=== PATIENT | female | born 1985 | race African-American/Black ===

== ENCOUNTER 2016-07-24 19:50 | Emergency (ER) | payer OTHER ==
[2016-07-24 19:57] VITALS: BP 128/80; PULSE 109; TEMP 97.7; BMI 33.2
--- NOTE | 2016-07-24 19:58 | PDOC ---
Rapid Medical Evaluation Chief Complaint: Eye Problem Time Seen by Provider: 07/24/16 19:57 Medical Evaluation: Allergies Allergy/AdvReac Type Severity Reaction Status Date / Time No Known Allergies Allergy Verified 07/24/16 19:55 Vital Signs Temp Pulse Resp BP Pulse Ox 97.7 F 109 H 18 128/80 97 07/24/16 19:55 07/24/16 19:55 07/24/16 19:55 07/24/16 19:55 07/24/16 19:55 07/24/16 19:57 31 yo F c/o left eye redness and irritation since this morning. No blurriness, visual disturbance.
[2016-07-24] MEDS ORDERED: TOBRAMYCIN 0.3% OPHTH SOLN 5 ML BOTTLE OU ONE (21:18)
[2016-07-24] MEDS ORDERED: TOBRAMYCIN 0.3% OPHTH SOLN 5 ML BOTTLE ONE (21:20)
--- NOTE | 2016-07-24 21:20 | PDOC ---
History of Present Illness - General Chief Complaint: Eye Problem Stated Complaint: POSSIBLE PINK EYE Time Seen by Provider: 07/24/16 19:57 History Source: Patient Exam Limitations: No Limitations - History of Present Illness Initial Comments: 07/24/16 21:32 CHIEF COMPLAINT: Eye redness HISTORY OF PRESENT ILLNESS: This is an otherwise healthy 31 year old female, currently 39 weeks , who presents complaining of two days of bilateral eye itching, redness, and discharge. She states that this morning, both eyes were crusted shut. Both daughters are currently being treated for conjunctivitis. She denies fevers/chills or any other symptoms. REVIEW OF SYSTEMS: GENERAL/CONSTITUTIONAL: No fever or chills. No weakness. No weight change. HEAD, EYES, EARS, NOSE AND THROAT: See HPI. CARDIOVASCULAR: No chest pain or palpitations. RESPIRATORY: No cough, wheezing, or shortness of breath. GASTROINTESTINAL: No nausea, vomiting, diarrhea or constipation. SKIN: No rash or easy bruising. NEUROLOGIC: No headache, vertigo, loss of consciousness, or loss of sensation. ALLERGIC/IMMUNOLOGIC: No hives or skin allergy. No latex allergy. PHYSICAL EXAM: GENERAL: The patient is awake, alert, and fully oriented, in no acute distress. ENT: Conjunctivae injected with yellow discharge bilaterally. PERRL, EOMI. NEUROLOGICAL: Normal speech, normal gait. CN II-XII grossly intact. PSYCH: Normal mood, normal affect. SKIN: Warm, dry, normal turgor, no rashes or lesions noted. Past History - Past Medical History Allergies/Adverse Reactions: Allergies Allergy/AdvReac Type Severity Reaction Status Date / Time No Known Allergies Allergy Verified 07/24/16 19:55 Home Medications: Ambulatory Orders Vit Calc,Iron,Folic [ Vitamins] 1 each PO DAILY 03/01/16 Asthma: No Cancer: No Cardiac Disorders: No Diabetes: No HTN: No Seizures: No Thyroid Disease: No Other medical history: denies - Reproductive History Expected Date of Delivery: 07/26/16 (#): 4 Para: 3 (full term vaginal) Cervical CA: No Dysfunctional Uterine Bleeding: No Ectopic : No Endometrial CA: No Endometriosis: No Ovarian CA: No PID: No Polycystic Ovaries: No Therapeutic (s) & number: No Spontaneous : 0 - Immunization History Immunization Up to Date: Yes - Psycho/Social/Smoking Cessation Hx Anxiety: No Suicidal Ideation: No Smoking Status: No Smoking History: Never smoked Have you smoked in the past 12 months: No Number of Cigarettes Smoked Daily: 6 If you are a former smoker, when did you quit?: 1 year 'Breaking Loose' booklet given: 04/10/16 Hx Alcohol Use: No Drug/Substance Use Hx: No Substance Use Type: None Hx Substance Use Treatment: No *Physical Exam - Vital Signs Last Vital Signs Temp Pulse Resp BP Pulse Ox 97.7 F 109 H 18 128/80 97 07/24/16 19:55 07/24/16 19:55 07/24/16 19:55 07/24/16 19:55 07/24/16 19:55 Medical Decision Making - Medical Decision Making 07/24/16 21:41 A/P: 31 year old female with conjunctivitis. -Tobramycin ophthalmic solution -Supportive care -Return precautions reviewed *DC/Admit/Observation/Transfer Diagnosis at time of Disposition: Conjunctivitis Qualifiers: Conjunctivitis type: acute Acute conjunctivitis type: bacterial Laterality: bilateral Qualified Code(s): H10.33 - Unspecified acute conjunctivitis, bilateral - Discharge Dispostion Disposition: HOME Condition at time of disposition: Stable Admit: No - Patient Instructions Printed Discharge Instructions: DI for Conjunctivitis Additional Instructions: -Continue Tobramycin 2 drops each eye every 4 hrs -Apply warm compresses to both eyes several times a day -Wash sheets and pillowcases in hot water and discard all eye makeup -Return here for any new or concerning symptoms
== END 2016-07-24 21:23 | disposition home or self-care (01) ==
LOC: JERFT 19:50
DX: O99.89 Other specified diseases and conditions complicating pregnancy, childbirth and the puerperium (principal); H10.33 Unspecified acute conjunctivitis, bilateral; Z3A.33 33 weeks gestation of pregnancy
CPT/HCPCS: 99281-25

== ENCOUNTER 2016-10-08 00:41 | Emergency (ER) | payer OTHER ==
[2016-10-08 01:35] VITALS: BP 125/68; PULSE 75; TEMP 98.3; BMI 27.3
[2016-10-08] MEDS ORDERED: ACETAMINOPHEN 325 MG TABLET (FP) PO ONE (01:39)
[2016-10-08] MEDS ORDERED: CEPHALEXIN MONOHYDRATE 500 MG CAPSULE (UD) PO ONE (01:39)
[2016-10-08] MEDS ORDERED: TETANUS AND DIPHTHERIA TOXOID 0.5 ML DISP.SYRIN IM ONE (01:40)
--- NOTE | 2016-10-08 01:47 | PDOC ---
History of Present Illness - General History Source: Patient <Trevon Valle - Last Filed: 10/08/16 01:38> - General History Source: Patient Exam Limitations: No Limitations - History of Present Illness Initial Comments: 10/08/16 01:50 The patient is a 31 year old female with no significant past medical history who presents to the ED with right third digit wound s/p injury. 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 She noted a small area of her skin was hanging off. She states she placed it back in placed and wrapped her hand with a napkin. She was told by her employer to come into the ER because there was an rat infested. States her pain is 8/10 The patient denies fever, chills, cough, SOB, chest pain, and palpitations. The patient denies abdominal pain, nausea, vomiting, and diarrhea. <Cheryl Lemus - Last Filed: 10/08/16 01:50> - General Chief Complaint: Laceration Stated Complaint: LACERATION RT HAND (WORK RELATED) Time Seen by Provider: 10/08/16 01:30 Past History - Past Medical History Asthma: No Cancer: No Cardiac Disorders: No Diabetes: No HTN: No Seizures: No Thyroid Disease: No - Reproductive History Expected Date of Delivery: 07/26/16 (#): 4 Para: 3 (full term vaginal) Cervical CA: No Dysfunctional Uterine Bleeding: No Ectopic : No Endometrial CA: No Endometriosis: No Ovarian CA: No PID: No Polycystic Ovaries: No Therapeutic (s) & number: No Spontaneous : 0 - Immunization History Immunization Up to Date: Yes - Psycho/Social/Smoking Cessation Hx Anxiety: No Suicidal Ideation: No Smoking Status: No Smoking History: Never smoked Have you smoked in the past 12 months: No Number of Cigarettes Smoked Daily: 6 If you are a former smoker, when did you quit?: 1 year 'Breaking Loose' booklet given: 04/10/16 Hx Alcohol Use: No Drug/Substance Use Hx: No Substance Use Type: None Hx Substance Use Treatment: No <Trevon Valle - Last Filed: 10/08/16 01:38> <Cheryl Lemus - Last Filed: 10/08/16 01:50> - Past Medical History Allergies/Adverse Reactions: Allergies Allergy/AdvReac Type Severity Reaction Status Date / Time No Known Allergies Allergy Verified 10/08/16 01:27 Home Medications: Ambulatory Orders Cephalexin Monohydrate [Keflex -] 500 mg PO BID #14 capsule 10/08/16 Review of Systems - Review of Systems Able to Perform ROS?: Yes Comments:: 10/08/16 01:50 CONSTITUTIONAL: Absent: fever, no chills, no fatigue EYES: Absent: visual changes ENT: Absent: ear pain, no sore throat CARDIOVASCULAR: Absent: chest pain, no palpitations RESPIRATORY: Absent: cough, no SOB GI: Absent: abdominal pain, no nausea, no vomiting, no constipation, no diarrhea GENITOURINARY: Absent: dysuria, no frequency, no hematuria MUSCULOSKELETAL: Absent: back pain, no arthralgia, no myalgia SKIN: +right third digit wound Absent: rash NEURO: Absent: headache <Cheryl Lemus - Last Filed: 10/08/16 01:50> *Physical Exam - Vital Signs Last Vital Signs Temp Pulse Resp BP Pulse Ox 98.3 F 75 14 125/68 98 10/08/16 01:28 10/08/16 01:28 10/08/16 01:28 10/08/16 01:28 10/08/16 01:28 <Trevon Valle - Last Filed: 10/08/16 01:38> - Vital Signs Last Vital Signs Temp Pulse Resp BP Pulse Ox 98.3 F 75 14 125/68 98 10/08/16 01:28 10/08/16 01:28 10/08/16 01:28 10/08/16 01:28 10/08/16 01:28 - Physical Exam Comments: 10/08/16 01:50 GENERAL: Well-appearing, well-nourished. No apparent distress. HEENT: Normocephalic, atraumatic. PERRL, EOM intact. CARDIOVASCULAR: Normal S1, S2. Regular rate and rhythm. PULMONARY: Clear to auscultation bilaterally. ABDOMEN: Soft, non-distended, non-tender. EXTREMITIES: Normal ROM in all four extremities. Right third digit lesion at the DIP joint, slight swelling, no erythema, no deformity. SKIN: Warm, dry. No rash NEUROLOGICAL: No focal neurological deficits. <Cheryl Lemus - Last Filed: 10/08/16 01:50> Medical Decision Making - Medical Decision Making 10/08/16 01:40 Dr. Valle: The scribe's documentation has been prepared under my direction and personally reviewed by me in its entirery. I confirm that the note above accurately reflects all work, treatment, procedures, and medical decision making performed by me. Pt sustained a superficial abrasion to the 3 right finger dorsal aspect at DIP joint region. NO erythema, good range of motion. Pt to receive Abx and Tetanus. <Trevon Valle - Last Filed: 10/08/16 01:38> *DC/Admit/Observation/Transfer - Discharge Dispostion Admit: No <Trevon Valle - Last Filed: 10/08/16 01:38> - Attestations Scribe Attestion: 10/08/16 01:50 Documentation prepared by Cheryl Lemus, acting as medical imaging technician for Trevon Valle MD/DO. <Cheryl Lemus - Last Filed: 10/08/16 01:50> Diagnosis at time of Disposition: Superficial abrasion - Discharge Dispostion Disposition: HOME Condition at time of disposition: Stable - Prescriptions Prescriptions: Cephalexin Monohydrate [Keflex -] 500 mg PO BID #14 capsule - Patient Instructions Printed Discharge Instructions: DI for Abrasion
== END 2016-10-08 02:00 | disposition home or self-care (01) ==
LOC: JER 00:41
PROC: 3E0234Z Introduction of Serum, Toxoid and Vaccine into Muscle, Percutaneous Approach (ICD-10-PCS; principal; 2016-10-08)
DX: S60.412A Abrasion of right middle finger, initial encounter (principal); W23.1XXA Caught, crushed, jammed, or pinched between stationary objects, initial encounter; Y93.H9 Activity, other involving exterior property and land maintenance, building and construction; Y92.89 Other specified places as the place of occurrence of the external cause; Y99.0 Civilian activity done for income or pay
CPT/HCPCS: 90471; 99281-25

== ENCOUNTER 2017-04-28 21:04 | Emergency (ER) | payer OTHER ==
[2017-04-28 21:48] VITALS: BP 130/78; PULSE 84; TEMP 98.9; BMI 25.8
--- NOTE | 2017-04-28 23:13 | PDOC ---
History of Present Illness - General Chief Complaint: Bite Stated Complaint: BITE Time Seen by Provider: 04/28/17 21:25 History Source: Patient Exam Limitations: No Limitations - History of Present Illness Initial Comments: 04/28/17 23:39 Patient is a 32-year-old female with no past medical history who presents to the emergency department today stating that she was bit by an unknown dog on her left forearm earlier this evening. Patient states that it was a large dog that attacked her unprovoked. She states that someone was able to take the dog off of her arm. However after the dog released his semiconductor wafer inspector. The dog ran away. PD was not on the scene. She does not know the vaccination status of the dog. Patient states that she received her tetanus last year while she was . Admits to pain in the arm. Denies fevers, chills, lightheadedness, weakness, difficulty breathing, nausea, vomiting. Past History - Travel Traveled outside of the country in the last 30 days: No Close contact w/someone who was outside of country & ill: No - Past Medical History Allergies/Adverse Reactions: Allergies Allergy/AdvReac Type Severity Reaction Status Date / Time No Known Allergies Allergy Verified 04/28/17 21:45 Home Medications: Ambulatory Orders NK [No Known Home Medication] 04/28/17 Asthma: No Cancer: No Cardiac Disorders: No Diabetes: No HTN: No Seizures: No Thyroid Disease: No - Reproductive History Expected Date of Delivery: 07/26/16 (#): 4 Para: 3 (full term vaginal) Cervical CA: No Dysfunctional Uterine Bleeding: No Ectopic : No Endometrial CA: No Endometriosis: No Ovarian CA: No PID: No Polycystic Ovaries: No Therapeutic (s) & number: No Spontaneous : 0 - Immunization History Immunization Up to Date: Yes - Suicide/Smoking/Psychosocial Hx Smoking Status: No Smoking History: Unknown if ever smoked Have you smoked in the past 12 months: No Number of Cigarettes Smoked Daily: 6 If you are a former smoker, when did you quit?: 1 year Information on smoking cessation initiated: No 'Breaking Loose' booklet given: 04/10/16 Hx Alcohol Use: No Drug/Substance Use Hx: No Substance Use Type: None Hx Substance Use Treatment: No Review of Systems - Review of Systems Able to Perform ROS?: Yes Comments:: 04/28/17 23:44 CONSTITUTIONAL: Absent: fever, chills, diaphoresis, generalized weakness, malaise, loss of appetite HEENT: Absent: rhinorrhea, nasal congestion, throat pain, throat swelling, difficulty swallowing, mouth swelling, ear pain, eye pain, visual Changes CARDIOVASCULAR: Absent: chest pain, loss of consciousness, palpitations, irregular heart rate, peripheral edema RESPIRATORY: Absent: cough, shortness of breath, dyspnea with exertion, orthopnea, wheezing, stridor, hemoptysis GASTROINTESTINAL: Absent: abdominal pain, abdominal distension, nausea, vomiting, diarrhea, constipation, melena, hematochezia GENITOURINARY: Absent: dysuria, frequency, urgency, hesitancy, hematuria, flank pain, genital pain MUSCULOSKELETAL: Absent: myalgia, arthralgia, joint swelling SKIN: Present: bite georgina to L lower arm with open wounds. Absent: rash, itching, pallor HEMATOLOGIC/IMMUNOLOGIC: Absent: easy bleeding, easy bruising, lymphadenopathy, frequent infections ENDOCRINE: Absent: unexplained weight gain, unexplained weight loss, heat intolerance, cold intolerance NEUROLOGIC: Absent: headache, focal weakness or paresthesias, dizziness, unsteady gait, seizure, mental status changes, bladder or bowel incontinence PSYCHIATRIC: Absent: anxiety, depression, suicidal or homicidal ideation, hallucinations. 04/29/17 19:05 Is the patient limited Pakistani proficient: No *Physical Exam - Vital Signs Last Vital Signs Temp Pulse Resp BP Pulse Ox 98.9 F 84 14 130/78 99 04/28/17 21:45 04/28/17 21:45 04/28/17 21:45 04/28/17 21:45 04/28/17 21:45 - Physical Exam Comments: 04/28/17 23:43 GENERAL: Well developed, well nourished. Awake and alert. No acute distress, but pt appears anxious and tearful on exam. HEENT: Normocephalic, atraumatic. PERRLA, EOMI. No conjunctival pallor. Sclera are non- icteric. Moist mucous membranes. Oropharynx is clear. NECK: Supple. Full ROM. No JVD. Carotid pulses 2+ and symmetric, without bruits. No thyromegaly. No lymphadenopathy. CARDIOVASCULAR: Regular rate and rhythm. No murmurs, rubs, or gallops. Distal pulses are 2+ and symmetric. PULMONARY: No evidence of respiratory distress. Lungs clear to auscultation bilaterally. No wheezing, rales or rhonchi. ABDOMINAL: Soft. Non-tender. Non-distended. No rebound or guarding. No organomegaly. Normoactive bowel sounds. MUSCULOSKELETAL L forearm with no ttp of the wrist, radius, ulna or elbow. Normal range of motion at all joints. No bony deformities or tenderness. No CVA tenderness. EXTREMITIES: No cyanosis. No clubbing. No edema. No calf tenderness. SKIN: Dog bite to the L forearm. 4 sites with puncture wounds, actively oozing. Warm and dry. Normal capillary refill. No rashes. No jaundice. NEUROLOGICAL: Alert, awake, appropriate. Cranial nerves 2-12 intact. No deficits to light touch and temperature in face, upper extremities and lower extremities. No motor deficits in the in face, upper extremities and lower extremities. Normoreflexic in the upper and lower extremities. Normal speech. Toes are down- going bilaterally. Gait is normal without ataxia. PSYCHIATRIC: Cooperative. Good eye contact. Appropriate mood and affect. Medical Decision Making - Medical Decision Making 04/28/17 23:49 Patient is a 32-year-old female with no past medical history who presents to the emergency department today for a dog bite to her left lower arm. The dog was not able to be quarantined after exposure. We will start rabies prophylaxis today. Immunoglobulin 5.5 mL's was injected into the sites of the dog bites, with the other 5.5 administered intramuscularly by nursing. Patient was also given the rabies vaccination. Patient was instructed that she needs to return in 3 days for another series of shots. Patient verbalizes understanding. Documentation was sent to the health Department. We'll discharge patient home at this time. *DC/Admit/Observation/Transfer Diagnosis at time of Disposition: Rabies, need for prophylactic vaccination against Dog bite Qualifiers: Encounter type: initial encounter Qualified Code(s): W54.0XXA - Bitten by dog, initial encounter - Discharge Dispostion Disposition: HOME Condition at time of disposition: Stable Admit: No - Referrals Referrals: Wilder Mann MD [Staff Physician] - - Patient Instructions Printed Discharge Instructions: DI for Animal Bites, DI for Rabies Vaccine Additional Instructions: You were bit by a dog. You were given rabies immunoglobin for prophylaxis as well as the rabies vaccine. You need to return on 05/01/17 for the second round of rabies immunoglobin. You may take ibuprofen as needed for pain. You were also prescribed percocet for break through pain. ' You must return to the ED on 05/01/17 Return to the ED sooner if you have worsening pain, fevers, chills, reaction at the injection sites, or any changes in your symptoms - Post Discharge Activity Forms/Work/School Notes: Back to Work
[2017-04-29] MEDS ORDERED: RABIES IMMUNE GLOBULIN 300 UNITS/2 ML VIAL ONE ×2 (00:03→00:05)
[2017-04-29] MEDS ORDERED: RABIES IMMUNE GLOBULIN 300 UNITS/2 ML VIAL IM ONE (00:08)
[2017-04-29] MEDS ORDERED: RABIES VACCINE (PCEC)/PF 2.5 UNIT/VIAL IM ONE (00:13)
== END 2017-04-29 00:30 | disposition home or self-care (01) ==
LOC: JERFT 21:04
PROC: 3E0234Z Introduction of Serum, Toxoid and Vaccine into Muscle, Percutaneous Approach (ICD-10-PCS; principal; 2017-04-28)
DX: Z20.3 Contact with and (suspected) exposure to rabies (principal); Z23 Encounter for immunization; W54.0XXA Bitten by dog, initial encounter; Y93.89 Activity, other specified; Y92.9 Unspecified place or not applicable
CPT/HCPCS: 90375; 90675; 99281-25

== ENCOUNTER 2020-04-25 18:15 | Emergency (ER) | payer OTHER ==
[2020-04-25 18:26] VITALS: TEMP 97.6; BMI 31.3
[2020-04-25] MEDS ORDERED: MAG HYDROX/AL HYDROX/SIMETH 30 ML UNIT-DOSE CUP PO ONE (19:24)
[2020-04-25] MEDS ORDERED: FAMOTIDINE 20 MG TABLET PO ONE (19:25)
[2020-04-25] MEDS ORDERED: FAMOTIDINE 20 MG TABLET ONE (19:39)
[2020-04-25] MEDS ORDERED: MAG HYDROX/AL HYDROX/SIMETH 30 ML UNIT-DOSE CUP ONE (19:40)
[2020-04-25 20:02] VITALS: BP 112/65; PULSE 83
[2020-04-25 20:09] LABS: BASO % 0.1 % (0-2.0); EOS % 2.4 % (0-4.5); HEMATOCRIT 38.6 % (32.4-45.2); HEMOGLOBIN 12.6 GM/dL (10.7-15.3); LYMPH % 22.9 % (8-40); MCH 25.2 pg (25.7-33.7); MCHC 32.6 g/dl (32.0-36.0); MEAN CELL VOLUME 77.1 fl (80-96); MEAN PLT VOLUME 8.3 fl (7.5-11.1); MONO % 8.3 % (3.8-10.2); NEUT % 66.3 % (42.8-82.8); PLATELET COUNT 299 K/MM3 (134-434); RDW 14.8 % (11.6-15.6); WHITE BLOOD COUNT 5.1 K/mm3 (4.0-10.0)
[2020-04-25 20:25] LABS: POTASSIUM 3.8 mmol/L (3.5-5.1)
[2020-04-25 20:27] LABS: ALBUMIN 4.1 g/dl (3.4-5.0); CALCIUM 9.1 mg/dL (8.5-10.1)
[2020-04-25 20:28] LABS: BLOOD UREA NITROGEN 14.9 mg/dL (7-18)
[2020-04-25 20:30] LABS: CREATININE 0.7 mg/dL (0.55-1.3)
[2020-04-25 20:32] LABS: BILIRUBIN,TOTAL 0.6 mg/dL (0.2-1); TOT PROT 7.8 g/dl (6.4-8.2)
[2020-04-25 21:59] LABS: URINE APPEARANCE CLOUDY; URINE BILIRUBIN NEGATIVE (NEGATIVE); URINE COLOR YELLOW; URINE GLUCOSE (UA) NEGATIVE (NEGATIVE); URINE KETONE 1+ (NEGATIVE); URINE LEUK ESTERASE NEGATIVE (NEGATIVE); URINE NITRITE NEGATIVE (NEGATIVE); URINE PROTEIN NEGATIVE (NEGATIVE)
[2020-04-25] MEDS ORDERED: ACETAMINOPHEN 325 MG TABLET (FP) PO ONE (22:48)
[2020-04-25] MEDS ORDERED: ACETAMINOPHEN 325 MG TABLET (FP) ONE (22:51)
== END 2020-04-25 23:51 | disposition home or self-care (01) ==
LOC: JER 18:15
DX: R10.30 Lower abdominal pain, unspecified (principal)
CPT/HCPCS: 36415; 76830-TC; 80053; 81003; 83690; 84703; 85025; 87086; 99284-25